=== PATIENT | female | born 1955 | race Caucasian/White ===

== ENCOUNTER → 2017-08-05 | Outpatient (CLI) | payer BC ==
--- NOTE | 2017-08-05 13:10 | KCIC ---
CHEST PA LATERAL History: Shortness of breath for one week.. Comparison: None. Findings: Cardiomediastinal silhouette is borderline widened in transverse diameter. Several small dense nodules, likely granulomas. Focal airspace consolidation. No pneumothorax identified. No evidence of pleural effusion. There is a old appearing potentially ununited fracture deformity of the right clavicle. Impression: 1. No evidence of active airspace disease. 2. Chronic potentially ununited appearing fracture of the right clavicle with superior angulation. Electronically signed by: Galdino Orr MD (08/05/2017 1:06 PM) [id number]
== END | disposition home or self-care (01) ==
LOC: KCIC 11:26
PROVIDERS: ATTEND Nurse Practitioner Family
DX: R06.02 Shortness of breath (principal)
CPT/HCPCS: 71020

== ENCOUNTER → 2020-08-08 | Outpatient (CLI) | payer MEDICARE ==
--- NOTE | 2020-08-08 16:27 | KCIC ---
5 views lumbar spine without comparison for upper lumbar pain status post a fall one month ago. FINDINGS: There may be some mild wedging at T10, though it is difficult to tell whether this is physiologic or related to acute or chronic compression fracture. If there is point tenderness in this area, dedicated thoracic radiographs may be of benefit. There is narrowing of the L4-5 and L5-S1 intervertebral disc spaces. There is bulky facet arthrosis in the lower lumbar levels. 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 There is bulky atherosclerosis of the aorta and iliac arteries. IMPRESSION: 1. Possible compression fracture of T10, though this is difficult to definitively characterize. If there is point tenderness in this area of the spine, dedicated thoracic radiograph should be considered. 2. 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 3. Degenerative changes of the lower lumbar spine. Electronically signed by: Kvng Elise MD (08/08/2020 4:24 PM) [id number]
== END ==
LOC: KCIC 11:20
PROVIDERS: ATTEND Family Medicine
DX: M47.816 Spondylosis without myelopathy or radiculopathy, lumbar region (principal)
CPT/HCPCS: 72110

== ENCOUNTER → 2020-10-16 | Outpatient (CLI) | payer MEDICARE ==
--- NOTE | 2020-10-16 16:34 | KCIC ---
Right hip 2 views INDICATION: Chronic right hip pain. COMPARISON: CT pelvis with IV contrast 04/17/2018 FINDINGS: AP and frog-leg lateral views of the right hip show exuberant ossification around the right acetabula r rim. Osteophytic spurring of the femoral head is also seen There is medial joint space narrowing. No fracture or dislocation is apparent. Soft tissues are unremarkable IMPRESSION: Moderately advanced right hip degenerative changes. No fracture or dislocation shown. Electronically signed by: Alex Richards MD (10/16/2020 4:32 PM) [id number]
== END ==
LOC: KCIC 12:32
PROVIDERS: ATTEND Family Medicine
DX: M16.11 Unilateral primary osteoarthritis, right hip (principal)
CPT/HCPCS: 73502

== ENCOUNTER → 2021-05-07 | Outpatient (CLI) | payer MEDICARE ==
[~2021-05-07] MED LIST: ASCO500C PO; ASPI-630 PO; ATOR20TA58 PO; CHOL10008 PO; INDA1.25 PO; LEVO50TA5 PO; OMEG-152 PO; POTA20TA4 PO; VITA-47 PO; VITA1TAB19 PO; VITA80003 PO; WARF4TAB64 PO
[2021-05-07 09:23] LABS: BASO # 0.1 x10^3/uL (0.0-0.2); BASO % 1 % (0-3); EOS # 0.1 x10^3/uL (0.0-0.7); EOS % 2 % (0-3); HEMATOCRIT 36.1 % (36.0-47.0); HEMOGLOBIN 12.2 g/dL (12.0-15.5); LYMPH # 1.2 x10^3/uL (1.0-4.8); LYMPH % 18 % (24-48); MEAN CORPUSCULAR HEMOGLOBIN 32 pg (25-35); MEAN CORPUSCULAR HGB CONC 34 g/dL (31-37); MEAN CORPUSCULAR VOLUME 94 fL (79-100); MONO # 0.6 x10^3/uL (0.0-1.1); MONO % 10 % (0-9); NEUT # 4.5 x10^3/uL (1.8-7.7); NEUT % 69 % (31-73); PLATELET COUNT 346 x10^3/uL (140-400); RED BLOOD COUNT 3.83 x10^6/uL (3.50-5.40); RED CELL DISTRIBUTION WIDTH 13.8 % (11.5-14.5); WHITE BLOOD COUNT 6.5 x10^3/uL (4.0-11.0)
[2021-05-07 09:30] LABS: PROTHROMBIN TIME PATIENT 28.3 SEC (11.7-14.0)
[2021-05-07 09:35] LABS: ALBUMIN 4.1 g/dL (3.4-5.0); CALCIUM 9.1 mg/dL (8.5-10.1); CREATININE 0.9 mg/dL (0.6-1.0); GFR 62.8; POTASSIUM 4.7 mmol/L (3.5-5.1)
--- NOTE | 2021-05-07 17:06 | RAD ---
EXAM: PA and Lateral Views of the Chest DATE: 05/07/2021 12:23 PM INDICATION: Reason: JOINT PREHAB CLASS-HX HYPERTENSION-PREOP EVAL / Spl. Instructions: RIGHT HIP RPLA CEMENT SCHEDULED 05/22 / History: COMPARISON: No Prior FINDINGS: The heart is not enlarged. Changes of cardiothoracic surgery. Mediastinal and hilar contours are normal. No focal parenchymal airspace opacity. Calcified granuloma right upper lung. No pleural effusion or pneumothorax. Chronic appearing right clavicle fracture and apex superior angulation. IMPRESSION: 1. No radiographic evidence for acute cardiopulmonary process. Electronically signed by: Matheus Khan MD (05/07/2021 5:04 PM) [id number]
[2021-05-08 02:08] LABS: HEMOGLOBIN A1C 6.1 % (4.8-5.6)
== END ==
LOC: SURGPAT 11:42
PROVIDERS: ATTEND Orthopaedic Surgery
DX: Z01.818 Encounter for other preprocedural examination (principal); J84.10 Pulmonary fibrosis, unspecified; M16.11 Unilateral primary osteoarthritis, right hip
CPT/HCPCS: 36415; 71046; 80048; 82040; 82306; 83036; 85025; 85610; 85651; 85730; 87641